=== PATIENT | male | born 1960 | race Caucasian/White ===

== ENCOUNTER → 2020-07-08 | Day surgery (SDC) | payer OTHER ==
[~2020-07-08] MED LIST: ALLERGY PLUS-S1 EACH PO; ASPIRIN EC81 MG PO; CHLORTHALIDONE25 MG PO; COZAAR100 MG PO; HYDRALAZINE25 MG PO; LIPITOR 10MG TA10 MG PO; LOPRESSOR50 MG PO; METFORMIN HCL500 MG PO; NORCO 5-325 TA1 EACH PO; PERCOCET 5-3251 EACH PO; PRILOSEC20 MG PO; VASCEPA1 GM PO; VOLTAREN **OUT50 MG PO; ZOLOFT100 MG PO
[2020-07-08 06:58] LABS: HCT 38.4 % (42.0-52.0); HGB 13.2 g/dl (13.2-18.0); MCH 31.4 pg (25.0-31.0); MCHC 34.4 g/dL (32.0-36.0); MCV 91.2 fL (78.0-100.0); MPV 10.2 fL (6.0-9.5); RBC 4.21 M/uL (4.70-6.00); WBC 5.8 K/uL (4.0-10.5)
[2020-07-08 07:22] LABS: ALBUMIN 4.4 g/dL (3.4-5.0); BILIRUBIN - TOTAL 0.5 mg/dL (0.2-1.0); BUN/CREAT RATIO (CALC) 19.8 RATIO; CREATININE 1.11 mg/dL (0.67-1.17); GLOBULIN (CALCULATION) 3.6 g/dL; POTASSIUM 3.6 mmol/L (3.5-5.1)
== END | disposition home or self-care (01) ==
LOC: FAS 06:13
PROVIDERS: Orthopaedic Surgery
DX: S83.231A Complex tear of medial meniscus, current injury, right knee, initial encounter (principal); M22.2X1 Patellofemoral disorders, right knee; M17.11 Unilateral primary osteoarthritis, right knee; X58.XXXA Exposure to other specified factors, initial encounter; K21.9 Gastro-esophageal reflux disease without esophagitis; I10 Essential (primary) hypertension; E11.9 Type 2 diabetes mellitus without complications; E78.00 Pure hypercholesterolemia, unspecified; F41.9 Anxiety disorder, unspecified; Z20.822 Contact with and (suspected) exposure to COVID-19; Z79.899 Other long term (current) drug therapy; Z88.6 Allergy status to analgesic agent; Z88.8 Allergy status to other drugs, medicaments and biological substances; M19.90 Unspecified osteoarthritis, unspecified site
CPT/HCPCS: 36415; 71045; 80053; 93005; J2250; J2405; J2704; J3010; J7120

== ENCOUNTER → 2021-11-09 | Day surgery (SDC) | payer OTHER ==
[~2021-11-09] VITALS: Ht 175.3 cm; Wt 90.9 kg
[~2021-11-09] MED LIST changes: +BRILINTA90 MG PO; +JANUMET 50-1,01 EACH PO; +JARDIANCE10 MG PO; +MOBIC7.5 MG PO; +SUCRALFATE1 GM PO; +VITAMIN E180 M1 PO
[2021-11-09 12:21] LABS: HCT 39.8 % (42.0-52.0); HGB 13.6 g/dl (13.2-18.0); MCH 30.5 pg (25.0-31.0); MCHC 34.2 g/dL (32.0-36.0); MCV 89.2 fL (78.0-100.0); RBC 4.46 M/uL (4.70-6.00); RDW 13.1 % (11.5-14.0); WBC 6.5 K/uL (4.0-10.5)
[2021-11-09 13:15] LABS: BILIRUBIN - TOTAL 0.6 mg/dL (0.2-1.0); CREATININE 1.07 mg/dL (0.67-1.17); GLOBULIN (CALCULATION) 3.1 g/dL; POTASSIUM 3.4 mmol/L (3.5-5.1); TOTAL PROTEIN 7.1 g/dL (6.4-8.2)
== END | disposition home or self-care (01) ==
LOC: FAS 10:15
PROVIDERS: Orthopaedic Surgery
DX: M16.11 Unilateral primary osteoarthritis, right hip (principal); M25.852 Other specified joint disorders, left hip; I10 Essential (primary) hypertension; E11.9 Type 2 diabetes mellitus without complications; K21.9 Gastro-esophageal reflux disease without esophagitis; Z88.5 Allergy status to narcotic agent; Z88.8 Allergy status to other drugs, medicaments and biological substances; Z79.1 Long term (current) use of non-steroidal anti-inflammatories (NSAID); Z79.82 Long term (current) use of aspirin; Z79.899 Other long term (current) drug therapy
CPT/HCPCS: 36415; 76000; 80053; J1040; J2704; J7120; Q9967